=== PATIENT | female | born 1995 | race Caucasian/White ===

== ENCOUNTER 2020-03-14 14:49 | Emergency (ER) | payer OTHER ==
--- NOTE | 2020-03-14 15:16 | ED Physician Documentation ---
History of Present Illness - Stated complaint Stated Complaint: RIB PX - Chief complaint Chief Complaint: General - History obtained from History obtained from: Patient - Additonal information Additional information: For as long as she can remember she has had recurrent left rib pain. Happen several times a year. In the past she would see a chiropractor for it and have her dislocated rib reduced. He feels like that. Is been going on for about a week. Sharp left rib pain specially when she is laying on it at night or with certain motions. There is no shortness of breath, pedal edema, calf pain, fever. Review of Systems Constitutional: reports: Reviewed and negative Eyes: reports: Reviewed and negative Respiratory: reports: Reviewed and negative PD PAST MEDICAL HISTORY - Allergies Allergies/Adverse Reactions: Allergies Allergy/AdvReac Type Severity Reaction Status Date / Time No Known Drug Allergies Allergy Verified 03/14/20 15:00 PD ED PE NORMAL - Vitals Vital signs reviewed: Yes - General General: Alert and oriented X 3, No acute distress - HEENT HEENT: PERRL, EOMI - Neck Neck: Supple, no meningeal sign, No bony TTP, No bruit - Cardiac Cardiac: RRR, No murmur - Respiratory Respiratory: No respiratory distress, Clear bilaterally, Other (Focally tender around the 11th rib left side anterior axillary line, no deformity.) - Abdomen Abdomen: Non tender - Back Back: No CVA TTP, No spinal TTP - Derm Derm: Normal color, Warm and dry - Extremities Extremities: No edema, No calf tenderness / cord - Neuro Neuro: Alert and oriented X 3, Normal speech Results - Vitals Vitals: Vital Signs - 24 hr 03/14/20 03/14/20 14:55 16:15 Temperature 37.3 C 37.1 C Heart Rate 76 86 Respiratory 18 16 Rate Blood Pressure 133/77 H 124/72 O2 Saturation 100 98 Oxygen O2 Source Room air - Rads (name of study) L ribs and CXR Radiology: EMP read contemporaneously (normal) PD MEDICAL DECISION MAKING - ED course ED course: 24-year-old woman with recurrent left rib pain. I considered pulmonary embolism in this patient. Clinically the pretest probability of pulmonary embolism is less than 15%. I applied to the PERC rules as follows: The patient's age is under 50, heart rate less than 100, oxygen saturation greater than 94%, the patient does not have a history of DVT or PE. Patient has no recent trauma or surgery. The patient has no hemoptysis. The patient is not on exogenous estrogens. The patient does not have clinical signs suggesting DVT. As such the patient ruled out for pulmonary embolism by PERC criteria. She was worried about a rib dislocation, But x-ray showed no evidence of this. Departure - Departure Disposition: 01 Home, Self Care Clinical Impression: Rib pain on left side Condition: Good Record reviewed to determine appropriate education?: Yes Instructions: ED Strain Chest Wall Comments: X-ray demonstrates no dislocations or fractures of your ribs. More likely this is muscular pain from the intercostal muscles between the ribs. Ibuprofen as needed for pain, follow-up with a chiropractor if you feel that has been helpful for you in the past. Discharge Date/Time: 03/14/20 16:14
--- NOTE | 2020-03-14 16:01 | XRAY Report ---
PROCEDURE: Ribs w/PA Chest LT INDICATIONS: rib pain TECHNIQUE: 3 views of the left ribs were acquired, along with a single view chest. COMPARISON: None FINDINGS: Hair artifact is noted. Surgical changes and devices: None. Bones and chest wall: A marker is placed upon the area of pain. At this site, no fractures are seen. Mild irregularities can be seen involving the costochondral junctions, yet without displaced fractur e. No fractures or dislocations are seen elsewhere. No suspicious bony lesions. The overlying soft tissues appear unremarkable. Lungs and pleura: No pleural effusions or pneumothorax. Lungs appear clear. Mediastinum: Mediastinal contours appear normal. Heart size is normal. IMPRESSION: No displaced fractures are detected. No pneumothorax can be seen. Reviewed by: Tyshawn Palacios MD on 03/14/2020 2:59 PM [facility] Approved by: Tyshawn Palacios MD on 03/14/2020 2:59 PM [facility] Station ID: [id number]
[2020-03-14 16:15] VITALS: BP 124/72
== END 2020-03-14 16:14 | disposition home or self-care (01) ==
LOC: ED 14:49
DX: R07.81 Pleurodynia (principal)
CPT/HCPCS: 99283

== ENCOUNTER 2020-06-01 17:41 | Outpatient (CLI) | payer OTHER | END 2020-06-01 17:42 | disposition home or self-care (01) | LOC: COV 17:41 | PROVIDERS: ATTEND Family Medicine | DX: U07.1 COVID-19 (principal) ==